=== PATIENT | female | born 1960 | race Caucasian/White ===

== ENCOUNTER 2020-12-19 17:10 | Emergency (ER) | payer MEDICARE, MEDICAID ==
[~2020-12-19] VITALS: Ht 165.1 cm; Wt 63.0 kg
--- NOTE | 2020-12-19 18:06 | PHYS DOC ---
Past History Past Medical History: Diabetes, Other Past Surgical History: Cholecystectomy, , Other Alcohol Use: None General Adult EDM: Chief Complaint: ANKLE PROBLEM HPI: HPI: Patient is a 60-year-old female who presents with right ankle, knee, hip pain after a fall today. Patient states she was walking through [employer] when she rolled her right ankle. Patient was unable to bear weight and had to have her carry her to a motorized chair. Patient denies taking anything prior to arrival for pain. Patient has a history of Crohn's and diabetes. Review of Systems: Review of Systems: Constitutional: Denies fever or chills Eyes: Denies change in visual acuity HENT: Denies nasal congestion or sore throat Respiratory: Denies cough or shortness of breath Cardiovascular: Denies chest pain or edema GI: Denies abdominal pain, nausea, vomiting, bloody stools or diarrhea : Denies dysuria Musculoskeletal: Reports right-sided lower back and hip pain, right ankle, right knee Integument: Denies rash Neurologic: Denies headache, focal weakness or sensory changes Endocrine: Denies polyuria or polydipsia Lymphatic: Denies swollen glands Psychiatric: Denies depression or anxiety Allergies: Allergies: Allergies Coded Allergies Type Severity Reaction Last Updated Verified Sulfa (Sulfonamide Antibiotics) Allergy Intermediate 12/19/20 Yes Physical Exam: PE: Constitutional: Well developed, well nourished, no acute distress, non-toxic appearance. [] HENT: Normocephalic, atraumatic, bilateral external ears normal, oropharynx moist, no oral exudates, nose normal. [] Eyes: PERRLA, EOMI, conjunctiva normal, no discharge. [] Neck: Normal range of motion, no tenderness, supple, no stridor. [] Cardiovascular:Heart rate regular rhythm, no murmur [] Lungs & Thorax: Bilateral breath sounds clear to auscultation [] Abdomen: Bowel sounds normal, soft, no tenderness, no masses, no pulsatile masses. [] Skin: Warm, dry, no erythema, no rash. [] Back: Lower right side tenderness, no CVA tenderness. [] Extremities: Right hip, knee, ankle pain. Unable to bear weight. No edema. [] Neurologic: Alert and oriented X 3, normal motor function, normal sensory function, no focal deficits noted. [] Psychologic: Affect normal, judgement normal, mood normal. [] Current Patient Data: Vital Signs: Vital Signs Date Time Temp Pulse Resp B/P (MAP) Pulse Ox O2 Delivery O2 Flow Rate FiO2 12/19/20 17:24 97.7 92 16 137/70 (92) 98 Room Air EKG: EKG: [] Radiology/Procedures: Radiology/Procedures: []Study: XR KNEE 4 VIEWS WITH PATELLA_RT Indication: Fall. Knee pain. Comparison: None. Findings: No acute fracture or traumatic malalignment. Thin linear lucency at the anterior margin of the patella on the sunrise view is not typical of trauma. No knee joint effusion. No advanced arthrosis. Tiny radiodensity projecting within the soft tissues superficial to the distal quadriceps tendon only apparent on the lateral view. Impression: 1. No acute osseous abnormality. 2. Tiny radiodensity only seen on the lateral view projecting within the soft tissues anterior to the distal quadriceps tendon. This may be external to the patient but correlate for soft tissue injury in this region to suggest a tiny focus of retained debris. EXAMINATION: XR BILATERAL HIP (WITH OR WITHOUT PELVIS) 2 VIEWS_RIGHT CLINICAL HISTORY: FALL, RIGHT HIP AND PELVIS PAIN TECHNIQUE: XR BILATERAL HIP (WITH OR WITHOUT PELVIS) 2 VIEWS_RIGHT Number of Images/Views: 3 COMPARISON: None FINDINGS: Mild axial joint space narrowing in the right hip with tiny marginal osteophytes. Similar findings noted in the left hip but incompletely evaluated. Pubic symphysis and SI joints maintained. Partially visualized lumbar degenerative changes. No acute fracture. IMPRESSION: Mild degenerative changes right hip. Electronically signed by: Moshe Patel DO (12/19/2020 6:58 PM) JOAN Exam: Right ankle 3 views INDICATION: Fall, right ankle pain TECHNIQUE: Frontal, lateral and oblique views of the right ankle Comparisons: None FINDINGS: Bone mineralization is normal. No acute or healed fractures. Soft tissues are unremarkable. Joint spaces are well-maintained. IMPRESSION: No acute osseous abnormality. Electronically signed by: Carlo Fonseca MD (12/19/2020 6:56 PM) [facility] Heart Score: C/O Chest Pain: No Risk Factors: Risk Factors: DM, Current or recent (<one month) smoker, HTN, HLP, family history of CAD, obesity. Risk Scores: Score 0 - 3: 2.5% MACE over next 6 weeks - Discharge Home Score 4 - 6: 20.3% MACE over next 6 weeks - Admit for Clinical Observation Score 7 - 10: 72.7% MACE over next 6 weeks - Early Invasive Strategies Course & Med Decision Making: Course & Med Decision Making Pertinent Labs and Imaging studies reviewed. (See chart for details) [] Patient is being seen for right ankle, knee, right hip pain after a fall today. Patient was unable to ambulate on her own after incident occurred. Right hip x-ray, right knee x-ray, right ankle x-ray ordered to rule out acute abnormality. Patient given hydrocodone for pain. X-ray of patient's ankle, knee, hip were all negative for acute abnormalities. Instructed patient to use ice to affected area. Ankle was Jakob wrapped. Instructed patient to take ibuprofen and Tylenol for discomfort. Patient given prescription for hydrocodone for pain. Patient to follow-up with her PCP for further imaging if she still continues to have symptoms. Patient is okay with discharge plan. Prema Disclaimer: Prema Disclaimer: This electronic medical record was generated, in whole or in part, using a voice recognition dictation system. Departure Departure: Impression: Primary Impression: Fall Qualified Codes: W19.XXXA - Unspecified fall, initial encounter Disposition: HOME / SELF CARE / HOMELESS Condition: GOOD Referrals: BURAK SQUIRES (PCP) Patient Instructions: Ankle Pain Additional Instructions: You were seen in the emergency room after a fall. The x-ray of your ankle, knee, hip was all negative for fracture. If you continue to have pain or symptoms you may need to follow-up with your PCP for further imaging and management. Sending you home with a prescription for hydrocodone for pain. You can also use ibuprofen. Try and rest your leg, apply ice, and elevate to help with swelling. Please continue to use Jakob wrap on your ankle to give more support. Please return emergency room with worsening symptoms or concerns. EMERGENCY DEPARTMENT GENERAL DISCHARGE INSTRUCTIONS Thank you for coming to [facility] (ED) today and trusting us with you care. We trust that you had a positivie experience in our Emergency Department. If you wish to speak to the department management, you may call the director at [phone]. YOUR FOLLOW UP INSTRUCTIONS ARE FOLLOWS: 1. Do you have a private Doctor? If you do not have a private doctor, please ask for a resource list of physicians or clinics that may be able to assist you with follow up care. 2. The Emergency Physician has interpreted your x-rays. The X-Ray specialist will also review them. If there is a change in the findings, you will be notified in 48 hours when at all possible. 3. A lab test or culture has been done, your results will be reviewed and you will be notified if you need a change in treatment. ADDITIONAL INSTRUCTIONS AND INFORMATION: 1. Your care today has been supervised by a physician who is specially trained in emergency care. Many problems require more than one evaluation for a complete diagnosis and treatment. We recommend that you schedule your follow up appointment as recommended to ensure complete treatment of you illness or injury. If you are unable to obtain follow up care and continue to have a problem, or if your condition worsens, we recommend that you return to the ED. 2. We are not able to safely determine your condition over the phone nor are we able to give sound medical advice over the phone. For these safety reasons, if you call for medical advice we will ask you to come to the ED for further evaluation. 3. If you have any questions regarding these discharge instructions please call the ED at [phone]. SAFETY INFORMATION: In the interest of safety, wellness, and injury prevention; we encourage you to wear your sealbelt, if you smoke; quite smoking, and we encourage family to use a protective helmet for bicycling and other sporting events that present an increased risk for head injury. IF YOUR SYMPTOMS WORSEN OR NEW SYMPTOMS DEVELOP, OR YOU HAVE CONCERNS ABOUT YOUR CONDITION; OR IF YOUR CONDITION WORSENS WHILE YOU ARE WAITING FOR YOUR FOLLOW UP APPOINTMENT; EITHER CONTACT YOUR PRIMARY CARE DOCTOR, THE PHYSICIAN WHOSE NAME AND NUMBER YOU WERE GIVEN, OR RETURN TO THE ED IMMEDIATELY. Scripts Hydrocodone Bit/Acetaminophen (HYDROCODONE-APAP 5-325 ) 1 Each Tablet 1 TAB PO PRN Q6HRS PRN for PAIN for 2 Days, #8 TAB 0 Refills Prov: SUJIT ODEN APRN 12/19/20 SUJIT ODEN APRN December 19, 2020 18:06
[2020-12-19] MEDS ORDERED: HYDROcodone/APAP 5/325MG 1 TAB TABLET PO ONE (18:15)
[2020-12-19 18:51] VITALS: BP 135/69
--- NOTE | 2020-12-19 18:55 | RAD ---
Study: XR KNEE 4 VIEWS WITH PATELLA_RT Indication: Fall. Knee pain. Comparison: None. Findings: No acute fracture or traumatic malalignment. Thin linear lucency at the anterior margin of the patell a on the sunrise view is not typical of trauma. No knee joint effusion. No advanced arthrosis. Tiny radiodensity projecting within the soft tissues superficial to the distal quadriceps tendon only apparent on the lateral view. Impression: 1. No acute osseous abnormality. 2. Tiny radiodensity only seen on the lateral view projecting within the soft tissues anterior to the distal quadriceps tendon. This may be external to the patient but correlate for soft tissue injury i n this region to suggest a tiny focus of retained debris. Electronically signed by: DILLON ARELLANO MD (12/19/2020 6:53 PM) [facility]
--- NOTE | 2020-12-19 18:58 | RAD ---
Exam: Right ankle 3 views INDICATION: Fall, right ankle pain TECHNIQUE: Frontal, lateral and oblique views of the right ankle Comparisons: None FINDINGS: Bone mineralization is normal. No acute or healed fractures. Soft tissues are unremarkable. Joint spa tre are well-maintained. IMPRESSION: No acute osseous abnormality. Electronically signed by: Carlo Fonseca MD (12/19/2020 6:56 PM) [facility]
--- NOTE | 2020-12-19 19:00 | RAD ---
EXAMINATION: XR BILATERAL HIP (WITH OR WITHOUT PELVIS) 2 VIEWS_RIGHT CLINICAL HISTORY: FALL, RIGHT HIP AND PELVIS PAIN TECHNIQUE: XR BILATERAL HIP (WITH OR WITHOUT PELVIS) 2 VIEWS_RIGHT Number of Images/Views: 3 COMPARISON: None FINDINGS: Mild axial joint space narrowing in the right hip with tiny marginal osteophytes. Similar findings no charmaine in the left hip but incompletely evaluated. Pubic symphysis and SI joints maintained. Partially v isualized lumbar degenerative changes. No acute fracture. IMPRESSION: Mild degenerative changes right hip. Electronically signed by: Moshe Patel DO (12/19/2020 6:58 PM) [facility]
[2020-12-19] MEDS ORDERED: HYDR-2155 PO (19:31)
== END 2020-12-19 19:42 | disposition home or self-care (01) ==
LOC: ER 17:10
DX: M25.571 Pain in right ankle and joints of right foot (principal); M25.551 Pain in right hip; M25.561 Pain in right knee; E11.9 Type 2 diabetes mellitus without complications; Z88.2 Allergy status to sulfonamides; W18.39XA Other fall on same level, initial encounter; Y93.01 Activity, walking, marching and hiking; Y92.89 Other specified places as the place of occurrence of the external cause; Y99.8 Other external cause status
CPT/HCPCS: 73502; 73564; 73610; 99284

== ENCOUNTER → 2021-05-11 | Outpatient (CLI) | payer MEDICARE, MEDICAID ==
[~2021-05-11] MED LIST: HYDR-2155 PO
--- NOTE | 2021-05-11 17:18 | RAD ---
3 view study of the SI joints Clinical indications: Low back pain and pelvic pain FINDINGS: No acute fracture or lytic process is evident. No ankylosis or erosive arthropathy of eithe r SI joint is seen. There is a small degenerative spur of the inferior aspect of the left SI joint. IMPRESSION: No significant abnormality. Electronically signed by: Edwin Gomez MD (05/11/2021 5:16 PM) [id number]
== END ==
LOC: RAD 12:42
PROVIDERS: ATTEND Family Medicine
DX: M54.5 Low back pain (principal); K50.118 Crohn's disease of large intestine with other complication; R10.2 Pelvic and perineal pain
CPT/HCPCS: 72202